=== PATIENT | female | born 1975 | race African-American/Black ===

== ENCOUNTER 2019-04-25 22:37 | Emergency (ER) | payer SELFPAY ==
[~2019-04-25] VITALS: Ht 165.1 cm; Wt 86.2 kg
[2019-04-25 22:44] VITALS: BP 159/85
[2019-04-25] MEDS ORDERED: HYDROcodone/APAP 5/325MG 1 TAB TABLET PO ONE (23:15)
[2019-04-26] MEDS ORDERED: NEOMY/BACITR/POLYMYXIN OINT PACKET. TP ONE
[2019-04-26] MEDS ORDERED: HYDR-3164 PO (00:05)
[2019-04-26] MEDS ORDERED: NAPR-514 PO (00:05)
[2019-04-26] MEDS ORDERED: TOBR5DRO6 OP (00:05)
--- NOTE | 2019-04-26 00:05 | PHYS DOC ---
Past Medical History Past Medical History: No Pertinent History (RAUL DONG APRN) Additional Past Surgical Histo: hernia repair (RAUL DONG APRN) Alcohol Use: Rarely Drug Use: None (RAUL DONG APRN) Adult General Chief Complaint Chief Complaint: LACERATION/AVULSION HPI HPI Patient is a 43 year old right handed female who presents with right hand injury, patient states she was moving a glass table that fell on her right hand. She is also complaining of pink and would like treatment. She states she has had redness and crustiness to her bilateral eyes since this morning. Denies any vision loss. (RAUL DONG APRN) Review of Systems Review of Systems Constitutional: Denies fever or chills [] Eyes: Reports bilateral eye redness. Denies change in visual acuity, Musculoskeletal: Reports right hand injury Integument: Denies rash or skin lesions [] Neurologic: Denies headache, focal weakness or sensory changes [] All other systems were reviewed and found to be within normal limits, except as documented in this note. (RAUL DONG APRN) Current Medications Current Medications Current Medications Medications (Trade) Dose Ordered Sig/Swetha Start Time Stop Time Status Last Admin Dose Admin Acetaminophen/ Hydrocodone Bitart (Lortab 5/325) 1 tab 1X ONCE 04/25/19 23:15 04/25/19 23:16 DC 04/25/19 23:17 1 TAB Neomycin/ Polymyxin/ Bacitracin (Triple Antibiotic Ointment) 1 pkt 1X ONCE 04/26/19 00:00 04/26/19 00:01 DC (ADAM PICHARDO MD) Allergies Allergies Allergies Coded Allergies Type Severity Reaction Last Updated Verified meperidine Allergy Unknown 04/25/19 Yes (ADAM PICHARDO MD) Physical Exam Physical Exam Constitutional: Well developed, well nourished, no acute distress, non-toxic appearance. [] HENT: Normocephalic, atraumatic, bilateral external ears normal, oropharynx moist, no oral exudates, nose normal. [] Eyes: PERRLA, EOMI, bilateral conjunctiva are slightly injected, no discharge. [] Skin: Warm, dry, no erythema, no rash. [] Back: No tenderness, no CVA tenderness. [] Extremities: Right hand with 2 superficial lacerations along the middle finger and ring finger metacarpals. Each laceration is approximately one centimeters long. There is no obvious tendon involvement. There is moderate swelling along the right dorsal hand. Range of motion to the right hand and fingers. Adequate radial, medial, ulnar sensation to the right hand. +2 right radial pulse. Cap refill less than 2 seconds the right fingers. Neurologic: Alert and oriented X 3, normal motor function, normal sensory function, no focal deficits noted. [] Psychologic: Affect normal, judgement normal, mood normal. [] (RAUL DONG APRN) Current Patient Data Vital Signs Vital Signs Date Time Temp Pulse Resp B/P (MAP) Pulse Ox O2 Delivery O2 Flow Rate FiO2 04/25/19 23:17 20 Room Air 04/25/19 22:44 98.4 69 159/85 (109) 100 98.4 (ADAM PICHARDO MD) EKG EKG [] (RAUL DONG APRN) Radiology/Procedures Radiology/Procedures [] (RAUL DONG APRN) Course & Med Decision Making Course & Med Decision Making Pertinent Labs and Imaging studies reviewed. (See chart for details) This is a 43-year-old female patient who presents to the ED today with right hand injury, patient was moving a glass table that fell on her hand. Tetanus is up-to-date. Right hand x-rays interpreted by are negative for any acute findings. Ice elevation encouraged. Patient is also complaining of pinkeye. Prescription for tobramycin given. (RAUL DONG APRN) Course & Med Decision Making Staff Physician Addendum: I was working in the ER during the course of this patient's visit. I was available for consultation as needed, but I was not directly involved in the care of this patient. (ADAM PICHARDO MD) Dragon Disclaimer Dragon Disclaimer This electronic medical record was generated, in whole or in part, using a voice recognition dictation system. (RAUL DONG APRN) Departure Departure Impression: Primary Impression: Contusion of right hand Additional Impressions: Laceration of right hand Bacterial conjunctivitis of both eyes Disposition: 01 HOME, SELF-CARE Condition: STABLE Referrals: NO PCP (PCP) follow up with your doctor in 1-2 weeks Patient Instructions: Bacterial Conjunctivitis, Contusion, [id number] Additional Instructions: You wee evaluated in the emergency room with a right hand injury as well as pinkeye. Use the prescribed medications as ordered. Try to ice and elevate the affected hand. Please apply Neosporin to the 2 lacerations on areas on your right hand. Keep the areas clean and dry. Monitor the areas for any signs of infection including but not limited to increased redness, warmth, yellow drainage from the areas and return to the ED they occur. Scripts Naproxen (NAPROXEN) 500 Mg Tablet 1 TAB PO BID, #20 TAB 0 Refills Prov: RAUL DONG APRN 04/26/19 Tobramycin (TOBRAMYCIN) 5 Ml Drops 1 DROP OP Q4HRS W/A, #5 ML use for 7 days Prov: RAUL DONG APRN 04/26/19 Hydrocodone/Apap 5-325 (NORCO 5-325 TABLET) 1 Each Tablet 1 TAB PO Q6HRS, #10 TAB Prov: RAUL DONG APRN 04/26/19 Problem Qualifiers Primary Impression: Contusion of right hand Encounter type: initial encounter Qualified Codes: S60.221A - Contusion of right hand, initial encounter Additional Impressions: Laceration of right hand Encounter type: initial encounter Foreign body presence: without foreign body Qualified Codes: S61.411A - Laceration without foreign body of right hand, initial encounter RAUL DONG APRN Apr 26, 2019 00:05 ADAM PICHARDO MD Apr 26, 2019 03:49
--- NOTE | 2019-04-26 01:02 | RAD ---
EXAM: RIGHT HAND 3 VIEWS. HISTORY: Right hand pain, fall. COMPARISON: None. FINDINGS: There is soft tissue swelling along the dorsum of the hand. Some soft tissue gas is noted. No fractures are identified. Alignment is maintained. Joint spaces are maintained. IMPRESSION: 1. Soft tissue swelling and some soft tissue gas along the dorsum of the hand. Correlate for laceration. No fracture. Electronically signed by: Kalpana Gutierrez MD (04/26/2019 12:59 AM) [facility]
== END 2019-04-26 00:20 | disposition home or self-care (01) ==
LOC: ER 22:37
DX: S61.411A Laceration without foreign body of right hand, initial encounter (principal); H10.89 Other conjunctivitis; B96.89 Other specified bacterial agents as the cause of diseases classified elsewhere; Z88.1 Allergy status to other antibiotic agents; W18.02XA Striking against glass with subsequent fall, initial encounter; Y93.89 Activity, other specified; Y92.89 Other specified places as the place of occurrence of the external cause; Y99.8 Other external cause status
CPT/HCPCS: 73130; 99284